=== PATIENT | male | born 1955 | race Caucasian/White ===

== ENCOUNTER 2017-05-10 11:41 | Day surgery (SDC) | payer OTHER ==
[~2017-05-10] VITALS: Ht 188 cm; Wt 116.7 kg
[~2017-05-10 11:41] MED LIST: AMLO5TAB96 PO; ASPI81CH3 PO; LISI2.5T55 PO; METO25 PO; NITR0.4S SL; OXYC5 PO; TAMS0.4C67 PO; TEMA15 PO
[2017-05-10] MEDS ORDERED: IOHEXOL 350 MG/ML 100 ML BTL (for Cath Lab) OTHER ONE (11:42)
[2017-05-10 12:05] VITALS: BP 157/89; PULSE 55; RESP 18; TEMP 98.3; O2SAT 96
[2017-05-10] MEDS ORDERED: NS 1000P @30 MLS/HR (KVO) IV SCH (12:45)
[2017-05-10 13:02] LABS: BASOPHIL # 0.1 TH/MM3 (0-0.2); BASOPHIL % 1.1 % (0.0-2.0); EOSINOPHIL # 0.4 TH/MM3 (0-0.4); EOSINOPHIL % 3.1 % (0.0-4.0); HEMATOCRIT 42.2 % (39.0-51.0); LYMPH % 20.2 % (9.0-44.0); LYMPHOCYTE # 2.4 TH/MM3 (1.0-4.8); MEAN CELL VOLUME 90.3 FL (80.0-100.0); MEAN CORPUSCULAR HEMOGLOBIN 30.9 PG (27.0-34.0); MEAN CORPUSCULAR HGB CONC 34.2 % (32.0-36.0); MONO % 7.9 % (0.0-8.0); NEUT % 67.7 % (16.0-70.0); PLATELET COUNT 316 TH/MM3 (150-450); RED BLOOD COUNT 4.67 MIL/MM3 (4.50-5.90); RED CELL DISTRIBUTION WIDTH 13.3 % (11.6-17.2); WHITE BLOOD COUNT 11.8 TH/MM3 (4.0-11.0)
[2017-05-10 13:11] LABS: APTT (PATIENT) 29.2 SEC (24.3-30.1); PROTHROMBIN TIME - PATIENT 10.7 SEC (9.8-11.6)
[2017-05-10 13:22] LABS: HEMO FLAGS AUTO DIFF
[2017-05-10 13:25] LABS: BICARBONATE 24.7 MEQ/L (21.0-32.0); POTASSIUM 4.3 MEQ/L (3.5-5.1)
[2017-05-10] MEDS ORDERED: HEPARIN-NS/PF INJ 1,000 ML ONE (13:52)
[2017-05-10] MEDS ORDERED: MIDAZOLAM HCL 2 MG/2 ML VIAL ONE (14:00)
[2017-05-10] MEDS ORDERED: HEPARIN SODIUM - IV 10,000 UNITS/10 ML VIAL ONE (14:00)
[2017-05-10] MEDS ORDERED: VERAPAMIL HCL 5 MG/2 ML VIAL ONE (14:00)
[2017-05-10 14:04] LABS: PLATELET ESTIMATE SMEAR NORMAL (NORMAL); PLATELET MORPHOLOGY NORMAL (NORMAL); SCAN/DIFF AUTO DIFF CONFIRMED
--- NOTE | 2017-05-10 14:57 | CATHPROC ---
[facility] HIS Report Study Information Study Number Admission Scheduled Start Study Start [id number] May 10 2017 11:41AM 05/10/2017 May 10 2017 1:58PM [place] Service Cardiac Catheterization Admit Source Facility Department Other [facility] - [facility] As[facility]er Physician and Clinical Staff Initial Anmol Kat Supervisor Front Jose AllenRN Recorder Deja Andre,EDMAR TECH2 Scrub Melissa López,RT(R) Procedures Performed Procedure Location (Site) Vessel Name Coronary Angiograms LCA Left Coronary Coronary Angiograms RCA Right Coronary Coronary Angiograms FREE BRYCE-RPDA Left Coronary LV Gram-hand inj. LV LV Ventricle Wire insertion Fem Art (right) Femoral Art Equipment Time Vegetable Tester Description Size Mfg Part Number Used/Scraped TRANSDUCER, TRUWAVE [id number] 14:24 BARBER OLIVEIRA * Used W/STOCKCOCK *[id number] [id number] *[id number] [id number] *[id number] [id number] *[id number] 14:24 MALLINCKRODT SYRINGE, ANGIOMAT 150ML 150ML *[id number] Used 2S Call Britannia CONCEPT DRAPE, RADIAL FEMORAL FULL 14:24 * [id number] *[id number] Used DEVELOPMENT BODY [id number] 14:24 [employer]. PACK, CCL CUSTOM * Used *[id number] 14:24 [employer] S.[employer]. SUPPORT, ARTERIAL ADULT 16284 *[id number] Used [id number] 14:24 MEDLINE PACER PEN, SKIN DUAL W/ RULER * Used *[id number] 14:08 MEDLINE PACER PEN, SKIN DUAL W/ RULER * Used *[id number] BAND, RADIAL COMPRESSION TR [id number] 14:46 [employer] MEDICAL 29CM Used LARGE 29 *[id number] 14:34 [place] [employer] WIRE, EXCHANGE 260CM 3MMJ 260CM Used *[id number] 14:08 NAMIC MANIFOLD, 4 PORT * Used *[id number] 14:24 NAMIC MANIFOLD, 4 PORT * Used *[id number] 14:24 [employer] OMNIPAQUE, 350 MG, 150ML 150ML [id number] Used [id number] 14:08 [employer] BLANKET,WARM AIR CCL * Used *[id number] CATHETER, FR5 OPTITORQUE [id number] 14:06 [facility] MEDICAL FR 5 Used RADIAL TIG 4.0 *[id number] History: Current Medications Medication Dosage/Unit Route Frequency Last Date/Time Taken ASA Statins (any) FLOMAX LISINOPRIL LOPRESSOR NTG SL History: Allergies Allergy Reaction warfarin History: Risk Factors Family History of Hypertension Dyslipidemia Previous [place] Previous Heart Failure Premature CAD Yes Yes Yes Yes No Prior Valve Prior PCI Prior PCIDate Prior CABG Prior CABGDate Surgery No Yes 06/01/2007 Yes 01/14/2015 Cerebrovascular Peripheral Artery Chronic Lung On Dialysis Diabetes Disease Disease Disease No No No No No History: Symptoms/Diagnosis Selection Items SOB History: CV Disease Selection Items Known CAD History: Stress Tests Stress or Imaging Studies Performed Yes Standard Exercise Stress Test No Stress Echo No Stress Test SPECT Stress Test SPECT Result Stress Test SPECT Ischemia Risk/Extent Yes Positive Intermediate Stress Test CMR No Cardiac CTA Coronary Calcium Score No No History: Other Current Smoker Method No Cigarettes Labs PT (sec) PTT (sec) INR (PTT:PT) 9.80-11.60 24.30-30.10 0.90-1.10 10.7 29.2 1 Medication Medication Total Dose (Bolus/Oral) Medication Total Dosage/Unit 1% XYLOCAINE 20 mL RADIAL COCKTAIL 5 mL (Bolus) VERSED 2 mg Medications (Bolus/Oral) Medication Time Given Dosage/Unit Administered By Reason VERSED 05/10/2017 2:15:04 PM 2 mg Jose Allen 2 mg VERSED given in lab by Jose Allen RN in Left Antecubital via Peripheral IV. 1% XYLOCAINE 05/10/2017 2:16:50 PM 20 mL Anmol Celaya 20 mL 1% XYLOCAINE given in lab by Anmol Celaya in Right Radial via Subcutaneous. Ntg 200mcg Verapamil 2.5mg Heparin RADIAL COCKTAIL 05/10/2017 2:23:28 PM 5 mL (Bolus) Anmol Celaya 2500U 5 mL (Bolus) RADIAL COCKTAIL given in lab by Anmol Celaya in Right Radial via Radial. Using [Solution Name]. Ordered by Anmol Celaya. Reason: Ntg 200mcg Verapamil 2.5mg Heparin 2500U. Medication (Drip) Medication Time Given Dosage/Unit Concentration/Unit Diluent (ml) Solution IV Solutions 05/10/2017 1:58:31 PM 0 mL (IV) 500 NaCl .9 IV Solutions given in lab by Jose Allen RN in Left Antecubital via Peripheral IV. Pump/Drip Flow = 20 ml/hr using NaCl .9. Initial Case Assessment Cardiovascular HR Rhythm NIBP Chest Pain 51 sr 179/81 0 Circulatory - Right Pulses Dorsalis Pedis Femoral Radial 3 1 3 Scale (0,1,2,3,4,d) Circulatory - Left Pulses Dorsalis Pedis Femoral Radial 3 Scale (0,1,2,3,4,d) Neurological State Oriented to time-place- Alert Moves all extremities person Respiration - General Respiration Rate SpO2 (%) (B/min) 15 98 Final Case Assessment Cardiovascular HR Rhythm NIBP Chest Pain 50 sb 172/85 0 Circulatory - Right Pulses Dorsalis Pedis Femoral Radial 3 1 3 Scale (0,1,2,3,4,d) Circulatory - Left Pulses Dorsalis Pedis Femoral Radial 3 Scale (0,1,2,3,4,d) Neurological State Oriented to time-place- Alert Moves all extremities person Respiration - General Respiration Rate SpO2 (%) (B/min) 9 96 Chronological Log Time Study Chronological Log 13:45:11 Patient arrived via Bed. 13:45:12 Patient Name, D.O.B, / Armband Verified By R.N. 13:45:13 Pre-op and post- op instructions given; patient acknowledges understanding of instructions. 13:48:14 Verbal Stimulation=2 Physical Stimulation=2 Airway=2 Respiration=2 TOTAL=8. (0=absent, 1=li mited, 2=present) Vitals capture started with the following parameters, Patient=Adult, Interval=5 min, Initial Pr kudwok=134 mmHg, 13:57:59 Deflation Rate=5 mmHg, Cuff placed on Right Arm 13:58:12 Consent signed by the physician and the patient and verified by the [facility] staff. 13:58:16 Presedation assessment performed by Balance Bridge Assembler RN. 13:58:22 Allens test performed on the right radial and ulnar artery. 13:58:25 Patient has been NPO for More than 6Hrs. 13:58:26 Skin Breakdown- none 13:58:27 Abhinav Prominences Protected 13:58:31 A # 20 IV was noted in the Antecubital (left). Grade = patent IV Solutions given in lab by Jose Allen, RN in Left Antecubital via Peripheral IV. Pump/Drip Flow = 20 ml/hr using 13:58:31 NaCl .9. 13:58:32 History and physical on the chart or being dictated. Assessment: Initial Case, HR=51 BPM, Rhythm=sr, HINI=031/81 mmhg, Chest Pain=0 Right Pulses: Zach Ped=3, Femoral=1, Radial=3 13:58:35 Left Pulses: Zach Ped=3 Neurological: State=Alert, Ox3, MCCRAY Respiration: Resp=15 B/min, SpO2=98 % 13:58:41 Reference ECG taken 13:59:16 Right groin and right wrist prepped with 2% chlorhexidine, and draped after a 3 min. waitin g time. 14:02:30 HR=53 bpm, JVRT=693/88 mmhg, SpO2=97.0 %, Resp=9 B/min, Pain=0, Marcelle=10, Hussein=2 14:05:05 Pressure channel 1 zeroed. 14:05:53 MD paged 14:07:05 MD responded 14:08:13 HR=52 bpm, NGCC=816/88 mmhg, SpO2=97.0 %, Resp=13 B/min 14:11:36 MD arrived. 14:12:29 HR=49 bpm, PXUV=319/90 mmhg, SpO2=97.0 %, Resp=10 B/min 14:15:04 2 mg VERSED given in lab by Jose Allen, RN in Left Antecubital via Peripheral IV. Time Out. Correct patient, correct procedure, correct physician, power injector not loaded with contrast with surgical 14:16:28 team present. Time Out Concurred by MD and individual staff in procedure. 14:16:49 Case Start 14:16:50 20 mL 1% XYLOCAINE given in lab by Anmol Celaya in Right Radial via Subcutaneous. 14:17:32 HR=52 bpm, JPUG=956/87 mmhg, SpO2=98.0 %, Resp=13 B/min, Marcelle=10 14:22:31 HR=52 bpm, TWSU=183/82 mmhg, SpO2=95.0 %, Resp=17 B/min 14:22:41 Access site was Radial Artery. right 14:23:01 A sheath was advanced into the Radial (right) using the Percutaneous technique. 5 mL (Bolus) RADIAL COCKTAIL given in lab by Anmol Celaya in Right Radial via Radial. Using [So lution Name]. Ordered 14:23:28 by Anmol Celaya. Reason: Ntg 200mcg Verapamil 2.5mg Heparin 2500U. A CATHETER, FR5 OPTITORQUE RADIAL TIG 4.0 FR 5 was advanced over a wire. OMNIPAQUE, 350 MG, 150 ML 150ML 14:24:32 was used for injections. Recorded Pressure: Ao, HR=59, Condition=Condition 1 14:24:58 (Aorta) Ao 127/64/89 14:25:23 The LCA was injected and visualized at various angles. OMNIPAQUE, 350 MG, 150ML 150ML used . 14:27:09 The RCA was injected and visualized at various angles. OMNIPAQUE, 350 MG, 150ML 150ML used . 14:27:28 HR=59 bpm, ZAWS=183/83 mmhg, SpO2=93.0 %, Resp=19 B/min 14:27:46 The FREE BRYCE-RPDA was injected and visualized at various angles. OMNIPAQUE, 350 MG, 150ML 150ML used. 14:28:22 Catheter was removed, unable to cannulate Bryce A MPA-2 INFINITI CATHETER FR 6 was advanced over a wire. OMNIPAQUE, 350 MG, 150ML 150ML was use d for 14:28:23 injections. Recorded Pressure: LV, HR=53, Condition=Condition 1 14:31:44 (Left Ventricle) LV 169/2/18 14:32:12 The LV was manually injected with 10 cc's and visualized. OMNIPAQUE, 350 MG, 150ML 150ML us ed. Recorded Pressure: LV, Ao, HR=54, Condition=Condition 1 14:32:14 (Left Ventricle) LV 169/3/25, (Aorta) Ao 165/68/105 14:33:12 HR=52 bpm, LDOH=318/83 mmhg, SpO2=94.0 %, Resp=16 B/min 14:33:15 A WIRE, EXCHANGE 260CM 3MMJ 260CM was inserted via Fem Art (right). After removing the current catheter a AL 1 INFINITI CATHETER FR 6 was advanced over a WIRE, EXC HANGE 260CM 14:35:12 3MMJ 260CM. After removing the current catheter a CATHETER, FR5 OPTITORQUE RADIAL TIG 4.0 FR 5 was advanced over a WIRE, 14:35:43 EXCHANGE 260CM 3MMJ 260CM. 14:37:16 The FREE BRYCE-RPDA was injected and visualized at various angles. OMNIPAQUE, 350 MG, 150ML 150ML used. 14:37:26 HR=50 bpm, BEIF=996/88 mmhg, SpO2=94.0 %, Resp=15 B/min, Marcelle=10 14:37:36 Catheter was removed A JL 3.5 INFINITI CATHETER FR 6 was advanced over a wire. OMNIPAQUE, 350 MG, 150ML 150ML was us ed for 14:38:37 injections. 14:40:27 The LCA was injected and visualized at various angles. OMNIPAQUE, 350 MG, 150ML 150ML used . 14:40:41 Catheter was removed 14:40:45 Case End 14:43:12 HR=52 bpm, WHCZ=226/85 mmhg, SpO2=96.0 %, Resp=9 B/min, Marcelle=10 Radial Compression Device Used. 20 mLs of air placed in BAND, RADIAL COMPRESSION TR LARGE 29 29 CM. Affected 14:45:33 hand 95 % O2 saturation. 14:46:51 No case complications noted. 14:46:52 Cine recording checked. 14:46:53 Bedside Report will be given. Assessment: Final Case, HR=50 BPM, Rhythm=sb, TRYT=737/85 mmhg, Chest Pain=0 Right Pulses: Zach Ped=3, Femoral=1, Radial=3 14:46:56 Left Pulses: Zach Ped=3 Neurological: State=Alert, Ox3, MCCRAY Respiration: Resp=9 B/min, SpO2=96 % 14:48:03 Patient moved to bed 14:48:45 Patient transported to DOCU End Study - Contrast Media Used In Study Contrast Total Opened (mL) Total Used (mL) Total Wasted (mL) Omnipaque 90 90 0 End Study - Radiation Exposure Fluoro Time (minutes) 7.7 End Study - Sheaths Sheaths Pulled By Sheath Hold Time (min) Melissa López End Study - Patient Disposition Complications Transferred To Interventional Outcome No Telemetry Bed No attempt made
[2017-05-10] MEDS ORDERED: MISC INFORMATION XX ONE (15:00)
[2017-05-10] MEDS ORDERED: ATOR40TA16 PO (15:54)
[2017-05-10] MEDS ORDERED: TRAZ50TA12 PO (15:54)
[2017-05-10] MEDS ORDERED: FLUO20CA12 PO (15:54)
--- NOTE | 2017-05-10 16:13 | EKG ---
Date Performed: 05/10/2017 Time Performed: 12:38:00 PTAGE: 62 years EKG: Sinus bradycardia. Right bundle branch block Abnormal ECG PREVIOUS TRACING : 01/15/2015 04.45 Compared to the previous tracing, RBBB is new DOCTOR: Charlie Ulloa Interpretating Date/Time 05/10/2017 16:12:00
--- NOTE | 2017-05-10 16:27 | MA ---
cc: SIL STOCK M.D. DATE 05/10/17 PROCEDURE Left heart catheterization, selective coronary and graft angiography, left ventriculography. PROCEDURE NOTE The patient was brought to the cardiac catheterization laboratory in a fasting state after having signed informed consent. The right radial region was prepped and draped as per policy and anesthetized with 1% lidocaine. Arterial access was obtained via the right radial artery and a 6-Djiboutian sheath placed. Coronary arteriography was performed using 6-Djib[place]ian [place] catheter which was also used to engage the bypass graft. Left ventriculography was done using a multipurpose catheter. There were no apparent immediate complications. A radial artery compression band was applied to the right wrist at the end of the case to achieve good hemostasis. HEMODYNAMIC RESULTS Left ventricle 176 with an end-diastolic pressure of 14. Aorta 180/80 with a mean of 106. There was no significant transvalvular aortic gradient on pullback of the pigtail catheter. CORONARY ARTERIOGRAPHY The left main has approximately 15% distal stenosis. The left anterior descending has fairly diffuse proximal disease resulting in up to 15% stenosis. The mid to distal LAD appears to be normal. The LAD gives rise to a large diagonal which has 40% proximal stenosis. The left circumflex is a medium-sized vessel giving rise to a small obtuse marginal. There is 40% ostial left circumflex disease. The rest of the vessel and obtuse marginal appear to be normal. The right coronary artery demonstrates a number of stents encompassing its proximal to midportion. The vessel is totally occluded in the mid area. GRAFT ANGIOGRAPHY A free right internal mammary artery to the right coronary artery is widely patent. LEFT VENTRICULOGRAPHY Contrast injection of the left ventricle reveals no segmental wall motion abnormalities. Ejection fraction is estimated at 60%. CONCLUSION 1. Severe single-vessel coronary artery disease. 2. Patent bypass graft (a free right internal mammary artery) to the posterior descending artery. 3. Normal left ventricular function with estimated ejection fraction of 60%. MD MANDEEP Roberson/MINISTERIO /3:17 PM /4:16 PM [facility]ENTERAdrián
== END 2017-05-10 18:09 | disposition home or self-care (01) ==
LOC: HDOC 11:41 → HDIC 11:42 → HDOC 18:09
PROVIDERS: ATTEND Internal Medicine Cardiovascular Disease
DX: R06.00 Dyspnea, unspecified (principal); I25.10 Atherosclerotic heart disease of native coronary artery without angina pectoris; I10 Essential (primary) hypertension; E78.5 Hyperlipidemia, unspecified; I45.10 Unspecified right bundle-branch block; R00.1 Bradycardia, unspecified; Z95.1 Presence of aortocoronary bypass graft; Z79.899 Other long term (current) drug therapy; Z79.82 Long term (current) use of aspirin
CPT/HCPCS: 80048; 85025; 85610; 85730; 93005; 93454; C1769; C1893; J1644; J2250; Q9967